=== PATIENT | male | born 1980 | race Hispanic/Latino ===

== ENCOUNTER 2018-11-24 21:32 | Emergency (ER) | payer OTHER, SELFPAY ==
[2018-11-24] MEDS ORDERED: Fluorescein Opthalmic Strip ONE (22:02)
[2018-11-24] MEDS ORDERED: Proparacaine 0.5% Opth 15 ML BOT ONE (22:03)
[2018-11-24] MEDS ORDERED: Adacel (T-DAP) 0.5 ML SYRINGE ONE (22:03)
== END 2018-11-24 23:45 | disposition home or self-care (01) ==
LOC: ERS 21:32
DX: T15.02XA Foreign body in cornea, left eye, initial encounter (principal); W45.8XXA Other foreign body or object entering through skin, initial encounter
CPT/HCPCS: 65205; 90471; 90715

== ENCOUNTER 2019-12-20 17:39 | Emergency (ER) | payer BC, OTHER ==
[2019-12-21 14:49] LABS: SARS-CoV-2 MS2 Positive; SARS-CoV-2 N Gene Negative; SARS-CoV-2 S Gene Negative; SARS-CoV-2 orf1ab Negative
== END 2019-12-20 18:01 | disposition home or self-care (01) ==
LOC: ERS 17:39
DX: Z20.828 Contact with and (suspected) exposure to other viral communicable diseases (principal)
CPT/HCPCS: 87635; 99283; U0003